=== PATIENT | female | born 1980 | race Two or more races ===

== ENCOUNTER 2016-10-20 12:32 | Outpatient (CLI) | payer OTHER ==
[~2016-10-20] VITALS: Ht 152.4 cm; Wt 72.5 kg
[2016-10-20 12:59] VITALS: Ht 152.4 cm; Wt 72.5 kg
[2016-10-20 13:00] VITALS: BP 99/56; PULSE 88; RESP 18
[2016-10-20 13:19] LABS: ADD SCAN DIFF NO
[2016-10-20 13:28] LABS: BASOPHILS % 0.2 % (0.0-2.0); EOSINOPHILS # 0.2 10^3/ul (0.0-0.5); EOSINOPHILS % 1.8 % (0.0-7.0); HEMATOCRIT 32.6 % (37.0-47.0); HEMOGLOBIN 10.6 g/dl (12.0-16.0); LYMPHOCYTES # 1.4 10^3/ul (0.8-2.9); LYMPHOCYTES % 10.5 % (15.0-51.0); MEAN CORPUSCULAR HEMOGLOBIN 28.9 pg (29.0-33.0); MEAN CORPUSCULAR HGB CONC 32.5 g/dl (32.0-37.0); MEAN CORPUSCULAR VOLUME 88.8 fl (82.0-101.0); MEAN PLATELET VOLUME 10.5 fl (7.4-10.4); MONOCYTE # 0.7 10^3/ul (0.3-0.9); MONOCYTES % 5.5 % (0.0-11.0); NEUTROPHIL # 10.3 10^3/ul (1.6-7.5); NEUTROPHILS % 79.1 % (39.0-77.0); PLATELET COUNT 235 10^3/UL (140-415); RED BLOOD COUNT 3.67 10^6/ul (4.20-5.40); RED CELL DISTRIBUTION WIDTH 14.1 % (11.5-14.5)
[2016-10-20 13:30] LABS: ADD UMIC YES; URINE BILIRUBIN (Dip) NEGATIVE (NEGATIVE); URINE BLOOD (Dip) 1+ (NEGATIVE); URINE COLOR LT. YELLOW (YELLOW); URINE GLUCOSE (Dip) NEGATIVE (NEGATIVE); URINE KETONES (Dip) NEGATIVE (NEGATIVE); URINE LEUKOCYTE ESTERASE (Dip) NEGATIVE (NEGATIVE); URINE NITRITE (Dip) NEGATIVE (NEGATIVE); URINE TOTAL PROTEIN (Dip) NEGATIVE (NEGATIVE); URINE UROBILINOGEN (Dip) 0.2 E.U./dL (0.1-1.0)
[2016-10-20 13:42] LABS: BACTERIA,URINE FEW; SQUAMOUS EPITHELIAL CELL,UR MODERATE; URINE RBCS 0-2 /HPF (0)
--- NOTE | 2016-10-20 14:01 | RADRPT ---
PROCEDURE: Limited obstetric ultrasound CLINICAL INDICATION: Pain , labor TECHNIQUE: Multiple transverse and longitudinal grayscale images of the pelvis were obtained hughes sabdominally and transvaginally.. COMPARISON: same day FINDINGS: The cervix has a length of 3.4 cm. There is a trace amount of fluid within the cervix. There is a single viable intrauterine gestation. Cardiac activity is present with 140 beats per min jacinto. There is a vertex presentation. The placenta is anterior posterior. There is no evidence for an abruption or placenta previa. There is a normal amount of amniotic fluid with an STEVEN = 11.2 cm. RPTAT: AA IMPRESSION: Cervix length measures 3.4 cm. Trace amount of fluid within the cervix. STEVEN measures 11.2 cm. .Britton Cheung MD, Date Time Electronically viewed and signed by .Britton Cheung MD, MD on 10/20/2016 14:00 .S/
--- NOTE | 2016-10-20 14:08 | RADRPT ---
PROCEDURE: Retroperitoneal US. CLINICAL INDICATION: flank pain TECHNIQUE: Multiple sonographic images of the kidneys and retroperitoneum were obtained. The imag es were reviewed on a PACS workstation. COMPARISON: No prior studies are available for comparison. FINDINGS: The kidneys are normal in size, contour, cortical thickness and cortical echogenicity. The right kidney measures 11.2 cm. The left kidney measures 11.5 cm. No kidney stones are visualized. There is mild right-sided hydronephrosis. The urinary bladder is decompressed and not well seen. RPTAT: AA IMPRESSION: Mild right-sided hydronephrosis. .Britton Cheung MD, MD Date Time Electronically viewed and signed by .Britton Cheung MD, MD on 10/20/2016 14:08 .S/
[2016-10-20] MEDS ORDERED: LACTATED RINGER'S 1,000 ML IV ONE (15:00)
[2016-10-20] MEDS ORDERED: LACTATED RINGER'S 1,000 ML IV SCH (15:00)
[2016-10-20] MEDS ORDERED: NIFEdipine 10 MG CAP PO ONE (16:30)
--- NOTE | 2016-10-20 20:07 | QN ---
Documentation Comment 36 y/o at 32+ weeks with c/o pelvic pain. No ROM or vaginal bleeding. Good movement. Afebrile VSS Abdomen soft NT Cervix closaed Strip Reactive Cervical length normal After rest patient feels better. D/C home. AMANDA DOSS MD Oct 20, 2016 20:07
--- NOTE | 2016-10-20 21:03 | TRIAGE ---
OB Triage Datetime Report Generated by CPN: 10/20/2016 21:02 Datetime: 10/20/2016 20:00 Stage of : OB Triage Maternal Assessment Level of Consciousness: Fully Conscious Labor Evaluation Frequency: 2-10 Monitor Mode: External Duration (sec)2399: 60-120 Quality: Mild Pattern: Normal: <= 5 Contractions in 10 Minutes Resting Tone [place]: Relaxed Heart Rate FHR Baseline Rate: 135 Monitor Mode: External US Variability: Moderate 6-25 bpm Accelerations: 15X15 Decelerations: None Category: Category I Pain Assessment Pain Scale: 0 Pain Presence: None/Denies Pain Type: N/A Pain Goal: 3 Membrane Status: Intact Vaginal Bleeding: None Datetime: 10/20/2016 19:44 Stage of : OB Triage Datetime: 10/20/2016 19:00 Stage of : OB Triage Maternal Assessment Level of Consciousness: Fully Conscious Labor Evaluation Frequency: 2-8 Monitor Mode: External Duration (sec)2399: 60-120 Quality: Mild Resting Tone [place]: Relaxed Heart Rate FHR Baseline Rate: 135 Monitor Mode: External US Variability: Moderate 6-25 bpm Accelerations: 15X15 Decelerations: None Pain Assessment Pain Scale: 0 Pain Presence: None/Denies Pain Type: N/A Pain Goal: 3 Membrane Status: Intact Vaginal Bleeding: None Datetime: 10/20/2016 18:00 Stage of : OB Triage Maternal Assessment Level of Consciousness: Fully Conscious Labor Evaluation Frequency: 2-10 Monitor Mode: External Duration (sec)2399: 30-90 Quality: Mild Resting Tone [place]: Relaxed Heart Rate FHR Baseline Rate: 135 Monitor Mode: External US Variability: Moderate 6-25 bpm Accelerations: 15X15 Decelerations: None Pain Assessment Pain Scale: 0 Pain Presence: None/Denies Pain Type: N/A Pain Goal: 3 Membrane Status: Intact Vaginal Bleeding: None Datetime: 10/20/2016 17:00 Stage of : OB Triage Maternal Assessment Level of Consciousness: Fully Conscious Labor Evaluation Frequency: 2-14 Monitor Mode: External Duration (sec)2399: 50-140 Quality: Mild Resting Tone [place]: Relaxed Heart Rate FHR Baseline Rate: 135 Monitor Mode: External US Variability: Moderate 6-25 bpm Accelerations: 15X15 Decelerations: None Pain Assessment Pain Scale: 0 Pain Presence: None/Denies Pain Type: N/A Pain Goal: 3 Membrane Status: Intact Vaginal Bleeding: None Datetime: 10/20/2016 16:00 Stage of : OB Triage Maternal Assessment Level of Consciousness: Fully Conscious Labor Evaluation Frequency: 6-16 Monitor Mode: External Duration (sec)2399: 60-110 Quality: Mild Resting Tone [place]: Relaxed Heart Rate FHR Baseline Rate: 135 Monitor Mode: External US Variability: Moderate 6-25 bpm Accelerations: 15X15 Decelerations: None Pain Assessment Pain Scale: 0 Pain Presence: None/Denies Pain Type: N/A Pain Goal: 3 Membrane Status: Intact Vaginal Bleeding: None Datetime: 10/20/2016 15:46 Vaginal Exam Dilatation (cms): 0.0 Station: -3 Exam By: khemani Vaginal Bleeding: None Cervix, Consistency: Soft Cervix, Position: Posterior Datetime: 10/20/2016 15:30 Stage of : OB Triage Maternal Assessment Level of Consciousness: Fully Conscious Labor Evaluation Frequency: OCCASIONAL Monitor Mode: External Duration (sec)2399: 30-140 Quality: Mild Resting Tone [place]: Relaxed Heart Rate FHR Baseline Rate: 135 Monitor Mode: External US Variability: Moderate 6-25 bpm Accelerations: 15X15 Decelerations: None Pain Assessment Pain Scale: 0 Pain Presence: None/Denies Pain Type: N/A Pain Goal: 3 Membrane Status: Intact Vaginal Bleeding: None Datetime: 10/20/2016 15:00 Stage of : OB Triage Maternal Assessment Level of Consciousness: Fully Conscious Labor Evaluation Frequency: IRREGULAR Monitor Mode: External Duration (sec)2399: 60-120 Quality: Mild Resting Tone [place]: Relaxed Heart Rate FHR Baseline Rate: 135 Monitor Mode: External US Variability: Moderate 6-25 bpm Accelerations: 15X15 Decelerations: None Pain Assessment Pain Scale: 0 Pain Presence: None/Denies Pain Type: N/A Pain Goal: 3 Membrane Status: Intact Vaginal Bleeding: None Datetime: 10/20/2016 14:30 Stage of : OB Triage Maternal Assessment Level of Consciousness: Fully Conscious Labor Evaluation Frequency: 2-5 Monitor Mode: External Duration (sec)2399: 60-120 Quality: Mild Resting Tone [place]: Relaxed Heart Rate FHR Baseline Rate: 135 Monitor Mode: External US Variability: Moderate 6-25 bpm Accelerations: 15X15 Decelerations: None Pain Assessment Pain Scale: 0 Pain Presence: None/Denies Pain Type: N/A Pain Goal: 3 Membrane Status: Intact Vaginal Bleeding: None Datetime: 10/20/2016 14:00 Stage of : OB Triage Maternal Assessment Level of Consciousness: Fully Conscious Labor Evaluation Frequency: 1uc/hr Monitor Mode: External Duration (sec)2399: 50 Quality: Mild Resting Tone [place]: Relaxed Heart Rate FHR Baseline Rate: 135 Monitor Mode: External US Variability: Moderate 6-25 bpm Accelerations: 15X15 Decelerations: None Pain Assessment Pain Scale: 0 Pain Presence: None/Denies Pain Type: N/A Pain Goal: 3 Membrane Status: Intact Vaginal Bleeding: None Datetime: 10/20/2016 12:51 Assessment Type: Triage Maternal Assessment Level of Consciousness: Fully Conscious DTR's/Clonus: DTRs 2+; No Clonus Headache: Denies Blurred Vision: No Respiratory Effort: Unlabored; Regular Rhythm; Equal Expansion Breath Sounds, Left: Clear and Equal Breath Sounds, Right: Clear and Equal Nausea/Vomiting: Denies RUQ Epigastric Pain: Denies Lower Extremities Edema: None Degree: None Upper Extremities Edema: None Degree: None Facial Edema: None Fall Risk Assessment History of Falling: (0) No Secondary Diagnosis: (0) No Ambulatory Aid: (0) Bedrest/Nurse Assist IV Therapy: (0) No Gait: (0) Normal/Bedrest/Immobile Mental Status: (0) Oriented to Own Ability Fall Score: 0 Fall Risk Score Definition: No Risk: No action required Datetime: 10/20/2016 12:48 Monitor Mode: External Monitor Mode: External US Datetime: 10/20/2016 12:44 Time of Arrival: 10/20/2016 12:24 EGA: 32.2 Arrived By: Ambulatory Arrived From: Office Chief Complaint: PT SENT HERE FROM CLINIC FOR C/O PELVIC PAIN Movement: Present Contractions: Denies/Absent Rupture of Membranes: Denies Vaginal Bleeding: None Vaginal Discharge: Denies Recent Sexual Intercouse: Denies Abdominal Trauma: Not Applicable Patient Complaints: Other Time Provider Notified: 10/20/2016 14:49 Provider Notified: SELAM Initial Plan: U/S FOR CVL, STEVEN, CBC, UA
== END 2016-10-20 20:15 | disposition home or self-care (01) ==
LOC: OBT 12:32 → L-D 12:34 → OBT 20:15
PROVIDERS: ATTEND Obstetrics & Gynecology
DX: O26.893 Other specified pregnancy related conditions, third trimester (principal); R10.2 Pelvic and perineal pain; Z3A.32 32 weeks gestation of pregnancy
CPT/HCPCS: 36415; 76775; 76815; 76817; 81001; 81003; 85025; 96360; 96361; J7120; Z7500; Z7610; G0463

== ENCOUNTER 2016-11-23 09:05 | Inpatient (IN) | payer OTHER ==
[~2016-11-23] VITALS: Ht 152.4 cm; Wt 74.0 kg
[2016-11-23 09:07] VITALS: Ht 152.4 cm; Wt 74.0 kg
[2016-11-23] MEDS ORDERED: PREN1TAB79 PO (09:09)
[2016-11-23] MEDS ORDERED: METHYLERGONOVINE 0.2 MG INJ IM PRN ×4 (09:30→18:00)
[2016-11-23] MEDS ORDERED: OXYTOCIN 30 UNITS/LR 500 ML IV SCH ×3 (09:30→16:17)
[2016-11-23] MEDS ORDERED: MISOPROSTOL 200 MCG TAB PR PRN ×4 (09:30→18:00)
[2016-11-23] MEDS ORDERED: CARBOPROST 250 MCG INJ IM PRN ×4 (09:30→18:00)
[2016-11-23] MEDS ORDERED: CEFAZOLIN 2 GM/50 ML (PMX) 50 ML IV SCH ×2 (09:30→11:00)
[2016-11-23] MEDS ORDERED: OXYTOCIN 30 UNITS/LR 500 ML IV PRN ×4 (09:30→18:00)
--- NOTE | 2016-11-23 09:39 | TRIAGE ---
OB Triage Datetime Report Generated by CPN: 11/23/2016 09:38 Datetime: 11/23/2016 09:25 Vaginal Exam Dilatation (cms): 2.0 Effacement (%): 90 Station: -2 Exam By: S. HECTOR Datetime: 11/23/2016 09:16 Stage of : OB Triage Assessment Type: Triage Maternal Assessment Level of Consciousness: Fully Conscious DTR's/Clonus: DTRs 2+; No Clonus Headache: Denies Blurred Vision: No Respiratory Effort: Unlabored; Regular Rhythm; Equal Expansion Breath Sounds, Left: Clear and Equal Breath Sounds, Right: Clear and Equal Nausea/Vomiting: Denies RUQ Epigastric Pain: Denies Lower Extremities Edema: None Degree: None Upper Extremities Edema: None Degree: None Facial Edema: None Fall Risk Assessment History of Falling: (0) No Secondary Diagnosis: (0) No Ambulatory Aid: (0) Bedrest/Nurse Assist IV Therapy: (0) No Gait: (0) Normal/Bedrest/Immobile Mental Status: (0) Oriented to Own Ability Fall Score: 0 Fall Risk Score Definition: No Risk: No action required Labor Evaluation Monitor Mode: External Heart Rate FHR Baseline Rate: 155 Monitor Mode: External US Variability: Moderate 6-25 bpm Accelerations: 15X15 Decelerations: None Category: Category I Pain Assessment Pain Scale: 5 Pain Presence: Intermittent Pain Type: Cramping Pain Location: Abdomen Pain Goal: 0 Pain Relief Measures: Comfort Measures Datetime: 11/18/2016 14:22 Time of Arrival: 11/23/2016 09:00 EGA: 37.1 Arrived By: Wheelchair Arrived From: Dr. Landin Chief Complaint: SENT FROM [facility] FOR UC'S Movement: Present Contractions: Regular Time Contractions Began: 11/23/2016 06:00 Contractions: 2-3 MINS Rupture of Membranes: Denies Vaginal Bleeding: None Vaginal Discharge: Denies Recent Sexual Intercouse: Denies Abdominal Trauma: Not Applicable Time Provider Notified: 11/23/2016 09:30 Provider Notified: DR. GOTTI Initial Plan: EFMX2, CALL MD Datetime: 10/20/2016 12:51 Fall Score: 0 Fall Risk Score Definition: No Risk: No action required Datetime: 10/20/2016 12:44 EGA: 32.2
[2016-11-23] MEDS ORDERED: TERBUTALINE 1 MG/ML INJ SC ONE (10:30)
[2016-11-23] MEDS ORDERED: LACTATED RINGER'S 1,000 ML IV SCH (10:43)
[2016-11-23 10:46] LABS: ADD SCAN DIFF NO
[2016-11-23 10:50] LABS: BASOPHILS % 0.1 % (0.0-2.0); EOSINOPHILS # 0.1 10^3/ul (0.0-0.5); EOSINOPHILS % 0.9 % (0.0-7.0); HEMATOCRIT 37.7 % (37.0-47.0); HEMOGLOBIN 11.8 g/dl (12.0-16.0); LYMPHOCYTES # 1.7 10^3/ul (0.8-2.9); LYMPHOCYTES % 11.9 % (15.0-51.0); MEAN CORPUSCULAR HEMOGLOBIN 26.7 pg (29.0-33.0); MEAN CORPUSCULAR HGB CONC 31.3 g/dl (32.0-37.0); MEAN CORPUSCULAR VOLUME 85.3 fl (82.0-101.0); MEAN PLATELET VOLUME 10.5 fl (7.4-10.4); MONOCYTE # 0.8 10^3/ul (0.3-0.9); MONOCYTES % 5.5 % (0.0-11.0); NEUTROPHIL # 11.1 10^3/ul (1.6-7.5); NEUTROPHILS % 79.5 % (39.0-77.0); PLATELET COUNT 245 10^3/UL (140-415); RED BLOOD COUNT 4.42 10^6/ul (4.20-5.40); RED CELL DISTRIBUTION WIDTH 15.2 % (11.5-14.5); WHITE BLOOD COUNT 13.9 10^3/ul (4.8-10.8)
[2016-11-23] MEDS ORDERED: METOCLOPRAMIDE 10 MG INJ ONE (10:56)
[2016-11-23] MEDS ORDERED: FAMOTIDINE 20 MG INJ ONE (10:56)
[2016-11-23] MEDS ORDERED: FAMOTIDINE 20 MG INJ IV ONE ×2 (11:00→13:00)
[2016-11-23] MEDS ORDERED: METOCLOPRAMIDE 10 MG INJ IV ONE ×2 (11:00→13:00)
[2016-11-23 11:05] LABS: INR 0.89; PARTIAL THROMBOPLASTIN TIME 26.9 Sec (25.0-35.0); PT RATIO 0.9
[2016-11-23] MEDS ORDERED: CITRIC ACID/SODIUM CITRATE 15 ML CUP PO ONE (11:30)
[2016-11-23] MEDS ORDERED: FENTAnyl 50 MCG/ML VIAL ONE (12:32)
[2016-11-23] MEDS ORDERED: morphine SULFATE/PF (10 MG/10 ML) INJ ONE (12:32)
[2016-11-23] MEDS ORDERED: PHENYLephrine (100 MCG/ML) 5ML SYG ONE (12:44)
[2016-11-23] MEDS ORDERED: CITRIC ACID/NA CITRATE 30 ML CUP PO ONE (13:00)
[2016-11-23] MEDS ORDERED: LACTATED RINGER'S 1,000 ML IV ONE (13:00)
[2016-11-23] MEDS ORDERED: ONDANSETRON 4 MG INJ ONE (13:15)
[2016-11-23] MEDS ORDERED: OXYTOCIN 30 UNITS/LR 500 ML IV ONE (13:30)
[2016-11-23] MEDS ORDERED: PROCHLORPERAZINE 10 MG INJ IV PRN ×2 (15:00)
[2016-11-23] MEDS ORDERED: KETOROLAC 30 MG INJ IV PRN (15:00)
[2016-11-23] MEDS ORDERED: NALOXONE (0.4 MG/ML) INJ IV PRN (15:00)
[2016-11-23] MEDS ORDERED: ZOLPIDEM 5 MG TAB PO PRN (15:00)
[2016-11-23] MEDS ORDERED: FENTAnyl 50 MCG/ML VIAL IV PRN (15:00)
[2016-11-23] MEDS ORDERED: HYDROmorphONE 1 MG/ML SYG IV PRN ×2 (15:00)
[2016-11-23] MEDS ORDERED: DIPHENHYDRAMINE 50 MG INJ IV PRN ×2 (15:00)
[2016-11-23] MEDS ORDERED: HYDROmorphONE (0.2 MG/ML) 10ML SYG IV PRN (15:00)
[2016-11-23] MEDS ORDERED: MEPERIDINE 25 MG INJ IV PRN (15:00)
[2016-11-23] MEDS ORDERED: ONDANSETRON 4 MG INJ IV PRN ×2 (15:00)
[2016-11-23] MEDS ORDERED: CEFAZOLIN 1 GM/50 ML (PMX) 50 ML IVPB SCH ×2 (16:30→18:00)
--- NOTE | 2016-11-23 16:37 | HP ---
Date/Time of Note Date/Time of Note DATE: 11/23/16 TIME: 16:21 OB - History Hx of Present Free Text/Dictation This is a 34 years old [place] female 3 para 2 EDC December 13, 1967 history of previous admitted to the hospital in active labor being prepared to undergo repeat section This patient has been under the care of Dr. Melecio Gallegos and her course was not complicated with gestational diabetes -induced hypertension or any other serious surgical or medical or infectious condition Estimated Due Date: December 13, 2016 : 3 Para: 2 Spontaneous : 1 Care: Good Care Ultrasounds: Normal mid trimester US Obstetrical Complications: None Medical Complications: None Past Family/Social History * Past Medical, Surgical, Family and Obstetric Histories reviewed from chart. Rubella: immune RPR/VDRL: Negative GBS Status: Negative HBsAG: Negative OB Admission Exam Last 72 hours Lab Results CBC & BMP 11/23/16 10:25 OB Assessment/Plan Reason for admission: other (Previous section at 37 weeks gestation active labor being prepared for repeat ) MICHAEL GOTTI MD November 23, 2016 16:37
--- NOTE | 2016-11-23 16:55 | OPR ---
DATE OF OPERATION: 11/23/2016 PREOPERATIVE DIAGNOSES: 1. Intrauterine uterine at 37 weeks' gestation. 2. History of previous section in active labor. POSTOPERATIVE DIAGNOSES: 1. Intrauterine at 37 weeks' gestation. 2. History of previous section in active labor. OPERATION PERFORMED: Repeat transverse low cervical section. SURGEON: Michael Delaney MD MARKET RESEARCH INTERN: JOSE HAYES MD. ANESTHESIA: Spinal. ANESTHESIOLOGIST: Dr. Moeller. FINDINGS: Live baby girl, Apgars 8 and 9. Baby weighed at 6 pounds 9 ounces. DETAILS OF THE PROCEDURE: Under satisfactory spinal anesthesia, the patient was prepped and draped and placed in supine position, tilted to the left. Pfannenstiel incision was made, carried through the subcutaneous tissue. Bleeders brought under control with electrocautery. Fascia incised to the length of the incision. Rectus muscle divided in midline. Peritoneum exposed, entered through a t ransverse incision. Exploration of abdomen revealed a gravid uterus, normal appearing tubes and ova dean and thinned out lower segment of the uterus. Bladder flap was developed. Transverse incision was made in the lower segment of the uterus. Amniotic sac ruptured. Clear amniotic fluid noted. L lisette baby girl was delivered from unengaged vertex. Nasal oropharyngeal suction was performed. Baby handed to the team for immediate attention. Patient received 20 units of Pitocin. Placen ta delivered manually intact. Uterine cavity cleaned with wet sponge and drainage established. [place] adali closed in 2 layers using Monocryl #1 in continuous fashion. Peritoneal cavity irrigated with wa rm saline. Sponge, needle and instrument reported to be correct. Abdominal peritoneum closed with 2-0 chromic catgut. Fascia closed with #1 PDS in a continuous fashion. Subcutaneous tissue was olegario roximated with 2-0 chromic catgut. Skin closed with arnie. Estimated blood loss 600 mL. Urine b ag contained 200 mL of clear urine. Patient tolerated procedure well, transferred to recovery room in a good condition. Dictated By: MICHAEL HANDLEY/KRISTIN Conf#: [id number] DID#: [id number]
[2016-11-23] MEDS ORDERED: OXYCODONE/ACETAMINOPHEN (5/325) TAB PO PRN (18:00)
[2016-11-23] MEDS ORDERED: ACETAMINOPHEN/CODEINE #3 TAB PO PRN ×2 (18:00)
[2016-11-23] MEDS ORDERED: LANOLIN 7 GM TUBE TOP PRN (18:00)
[2016-11-23] MEDS: OXYTOCIN 30 UNITS/LR 500 ML IV SCH ×2 (18:29→21:46)
[2016-11-23 18:30] VITALS: BP 102/61; PULSE 70; RESP 18
[2016-11-23 18:45] VITALS: BP 115/63; PULSE 74; RESP 20
[2016-11-23 20:00] VITALS: BP 92/53; PULSE 72; RESP 20
[2016-11-23] MEDS: LACTATED RINGER'S 1,000 ML IV SCH (22:40)
[2016-11-24] MEDS: LACTATED RINGER'S 1,000 ML IV SCH ×2 (00:17→05:20)
[2016-11-24] MEDS: KETOROLAC 30 MG INJ IV PRN ×3 (01:22→13:39)
[2016-11-24] MEDS: OXYTOCIN 30 UNITS/LR 500 ML IV SCH ×2 (01:46→05:46)
[2016-11-24 04:23] VITALS: BP 101/52; PULSE 64; RESP 20
[2016-11-24 08:02] LABS: ADD SCAN DIFF NO
[2016-11-24 08:06] LABS: BASOPHILS % 0.2 % (0.0-2.0); EOSINOPHILS # 0.1 10^3/ul (0.0-0.5); EOSINOPHILS % 0.8 % (0.0-7.0); HEMATOCRIT 29.4 % (37.0-47.0); HEMOGLOBIN 9.2 g/dl (12.0-16.0); LYMPHOCYTES # 1.2 10^3/ul (0.8-2.9); LYMPHOCYTES % 9.1 % (15.0-51.0); MEAN CORPUSCULAR HEMOGLOBIN 26.7 pg (29.0-33.0); MEAN CORPUSCULAR HGB CONC 31.3 g/dl (32.0-37.0); MEAN CORPUSCULAR VOLUME 85.5 fl (82.0-101.0); MEAN PLATELET VOLUME 10.5 fl (7.4-10.4); MONOCYTE # 0.7 10^3/ul (0.3-0.9); MONOCYTES % 5.4 % (0.0-11.0); NEUTROPHIL # 10.8 10^3/ul (1.6-7.5); NEUTROPHILS % 83.2 % (39.0-77.0); PLATELET COUNT 223 10^3/UL (140-415); RED BLOOD COUNT 3.44 10^6/ul (4.20-5.40); RED CELL DISTRIBUTION WIDTH 15.1 % (11.5-14.5)
[2016-11-24 08:17] VITALS: BP 93/50; PULSE 78; RESP 18
[2016-11-24] MEDS: SENNA/DOCUSATE NA (8.6MG/50MG) TAB PO SCH ×2 (09:24→21:00)
[2016-11-24 12:36] VITALS: BP 98/48; PULSE 70; RESP 16
[2016-11-24 16:30] VITALS: BP 104/63; PULSE 73; RESP 17
[2016-11-24] MEDS ORDERED: DIPHENHYDRAMINE 50 MG CAP PO PRN (17:30)
[2016-11-24] MEDS: IBUPROFEN 600 MG TAB PO SCH (18:01)
[2016-11-24 20:00] VITALS: BP 103/55; PULSE 80; RESP 20
--- NOTE | 2016-11-24 20:03 | QN ---
Documentation Comment No complaint Afebrile VSS Abdomen soft ND POD #1 Stable Ambulate Advance diet. AMANDA DOSS MD November 24, 2016 20:03
[2016-11-25] MEDS: IBUPROFEN 600 MG TAB PO SCH ×4 (00:07→18:02)
[2016-11-25 04:15] VITALS: BP 101/53; PULSE 65; RESP 20
[2016-11-25] MEDS: OXYCODONE/ACETAMINOPHEN (5/325) TAB PO PRN ×2 (04:36→19:18)
[2016-11-25 08:11] VITALS: BP 96/54; PULSE 65; RESP 18
[2016-11-25] MEDS: SENNA/DOCUSATE NA (8.6MG/50MG) TAB PO SCH (08:47)
[2016-11-25 16:00] VITALS: BP 116/78; PULSE 64; RESP 18
--- NOTE | 2016-11-25 19:11 | QN ---
Documentation Comment No complaint Afegrile VSS Abdomen soft POD #2 Stable Continue with present care. AMANDA DOSS MD November 25, 2016 19:11
[2016-11-25 20:00] VITALS: BP 103/56; PULSE 72; RESP 20
[2016-11-26] MEDS: SENNA/DOCUSATE NA (8.6MG/50MG) TAB PO SCH ×3 (00:33→22:22)
[2016-11-26] MEDS: IBUPROFEN 600 MG TAB PO SCH ×4 (00:34→18:00)
[2016-11-26 04:00] VITALS: BP 90/51; PULSE 65; RESP 18
[2016-11-26 08:00] VITALS: BP 98/51; PULSE 65; RESP 18
[2016-11-26] MEDS ORDERED: DIPHTH/TET/ACEL PERTUSS (ADULT) 0.5 ML VIAL IM* ONE (09:00)
--- NOTE | 2016-11-26 14:12 | PN ---
Date/Time of Note Date/Time of Note DATE: 11/26/16 TIME: 14:10 OB Subjective Subjective Subjective Patient without complaints. OB Objective Objective Objective Gen: NAd Abd: I-C/D/I OB Assessment/Plan Reason for admission: active labor, section Other Assessment: s/p repeat Other plan: POD3 -continue routine care -anticipate discharge home tomorrow CAROL SYED November 26, 2016 14:12
[2016-11-26 16:00] VITALS: BP 95/57; PULSE 62; RESP 18
--- NOTE | 2016-11-26 16:41 | QN ---
Documentation Comment Physical exam. Temperature 97.8 pulse 65 respirations 16 blood pressure 96/54 Head ears nose and throat negative neck supple no thyromegaly Lungs clear to P&A Heart normal sinus rhythm no murmur Abdomen fundal height 37 cm from symphysis pubis heart rate category 1 contractions 3-5 minutes score of the previous Pelvic examination deferred Extremity no edema mild varicosities Impression intrauterine at term history of previous patient is being prepared for the repeat delivery complication of the surgery including bowel bladder injury infection hemorrhage and hematoma has been discussed with the patient and she is willing to go ahead with the procedure. MICHAEL GOTTI MD November 26, 2016 16:41
[2016-11-26 19:30] VITALS: BP 108/61; PULSE 73; RESP 20
[2016-11-27] MEDS: IBUPROFEN 600 MG TAB PO SCH ×3 (00:18→12:18)
[2016-11-27 09:30] VITALS: BP 112/64; PULSE 62; RESP 16
[2016-11-27] MEDS: SENNA/DOCUSATE NA (8.6MG/50MG) TAB PO SCH (09:37)
[2016-11-27] MEDS ORDERED: IBUP800T25 PO (15:19)
--- NOTE | 2016-11-27 15:21 | DS ---
Date/Time of Note Date/Time of Note DATE: 11/27/16 TIME: 15:21 Obstetrical Discharge Record Final Diagnosis Final Diagnosis: Term delivered Section Section: Repeat Condition on Discharge Physical Assessment Voiding: Yes Bowel Movement: Yes Breast: Soft, non-tender Fundus: Firm Abdomen and Incision: Incision clean dry intact Gael to be removed on Tuesday, December 01, 2016 Patient should follow-up with Dr. Doss on Thursday, December 01, 2016 Patient Condition: Good Copies To: CC: AMANDA DOSS MD, BAHAREH MD November 27, 2016 15:21
== END 2016-11-27 17:22 | disposition home or self-care (01) | DRG 766 ==
LOC: L-D 09:05 → OBT 09:05 → L-D 09:51 → PP1 18:22
PROVIDERS: ADMIT Obstetrics & Gynecology; ATTEND Obstetrics & Gynecology
PROC: 10D00Z1 Extraction of Products of Conception, Low, Open Approach (ICD-10-PCS; principal; 2016-11-23 10:30)
DX: O34.211 Maternal care for low transverse scar from previous cesarean delivery (principal); Z37.0 Single live birth; Z3A.37 37 weeks gestation of pregnancy
CPT/HCPCS: 85025; 85610; 85730; 86592; 86850; 86900; 86901; 87340; 90715; 94760; 99464; G0463; J0690; J1200; J1885; J2274; J2370; J2405; J2590; J2765; J3010; J3105; J7120